=== PATIENT | male | born 1965 | race Asian ===

== ENCOUNTER 2019-01-27 14:32 | Emergency (ER) | payer BC ==
--- NOTE | 2019-01-27 14:49 | Emergency Department Report ---
Blank Doc - Documentation Documentation: This is a 54-year-old male that presents with left sided chest pain with radia tion to left side. Denies any SOB. This initial assessment/diagnostic orders/clinical plan/treatment(s) is/are subject to change based on patient's health status, clinical progression and re-assessment by fellow clinical providers in the ED. Further treatment and workup at subsequent clinical providers discretion. Patient/guardians urged not to elope from the ED as their condition may be serious if not clinically assessed and managed. Initial orders include: 1- Patient sent to MAIN for further evaluation and treatment 2- labs 3- EKG 4- CXR
--- NOTE | 2019-01-27 15:17 | XRay Report ---
CHEST 2 VIEWS INDICATION: Chest pain for one day. COMPARISON: None FINDINGS: Support devices: None. Heart: Within normal limits. Lungs/pleura: No acute air space or interstitial disease. No pneumothorax. Additional findings: None. IMPRESSION: No acute findings. Signer Name: Lito Mercado Jr, MD Signed: 01/27/2019 3:13 PM Workstation Name: [id number]
[2019-01-27 15:26] LABS: Basophils % (Auto) 0.6 % (0.0-1.8); Eosinophils % (Auto) 0.7 % (0.0-4.3); Hematocrit 39.7 % (35.5-45.6); Hemoglobin 13.6 gm/dl (11.8-15.2); Lymphocytes # (Auto) 1.1 K/mm3 (1.2-5.4); Lymphocytes % (Auto) 30.6 % (13.4-35.0); Mean Corpuscular HGB Conc 34 % (32-34); Mean Corpuscular Volume 94 fl (84-94); Monocytes # (Auto) 0.2 K/mm3 (0.0-0.8); Monocytes % (Auto) 6.4 % (0.0-7.3); Platelet Count 233 K/mm3 (140-440); Red Blood Count 4.21 M/mm3 (3.65-5.03); Red Cell Distribution Width 13.3 % (13.2-15.2)
[2019-01-27 15:32] LABS: INR 1.06 (0.87-1.13)
[2019-01-27 15:34] LABS: BUN/Creatinine Ratio 18; Blood Urea Nitrogen 16 mg/dL (9-20); Calcium 9.1 mg/dL (8.4-10.2); Hemolysis Index 11
--- NOTE | 2019-01-27 16:24 | Emergency Department Report ---
ED Chest Pain HPI - General Chief Complaint: Chest Pain Stated Complaint: CHEST/L ARM PAIN Time Seen by Provider: 01/27/19 16:07 Source: patient Mode of arrival: Ambulatory Limitations: No Limitations - History of Present Illness Initial Comments: Patient is a 54-year-old male that presents emergency with complaints of left- sided chest pain radiating to his left arm 3 days. Patient states the chest pain is constant. Patient states the chest pain is a 3 out of 10 and is a pressure or tightness. Patient states he had a stress test 5 years ago and was normal. Patient states she has a past medical history of hyperlipidemia. 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 Patient states she sees Rich Downing. Patient does not have a history of hypertension or diabetes. Patient states his hyperlipidemias control Crestor. Patient denies shortness of breath. Patient denies fever chills. Patient denies nausea vomiting. Patient denies diaphoresis. MD Complaint: chest pain -: Sudden Onset: during rest Pain Radiation: none Severity: mild Severity scale (0 -10): 3 Quality: tightness, pressure Consistency: constant Improves With: nothing Worsens With: nothing re: denies: nausea, vomting, diaphoresis, dyspnea, sense of impending doom Other Symptoms: denies: cough, fever, syncope, rash, acid taste in mouth, leg swelling, palpitations, burping Treatments Prior to Arrival: none Aspirin use within the Past 7 Days: (0) No - Related Data On Oral Contraceptives: No Previous Rx's Medication Instructions Recorded Last Taken Type Aspirin [Adult Aspirin] 81 mg PO DAILY #15 tablet. 01/27/19 Unknown Rx Allergies Allergy/AdvReac Type Severity Reaction Status Date / Time No Known Allergies Allergy Verified 01/27/19 15:29 Heart Score - HEART Score History: Slightly suspicious EKG: Normal Age: 45-65 Risk factors: No known risk factors Troponin: < normal limit HEART Score: 1 ED Review of Systems ROS: Stated complaint: CHEST/L ARM PAIN Other details as noted in HPI Constitutional: denies: chills, fever Eyes: denies: eye pain, eye discharge, vision change ENT: denies: ear pain, throat pain Respiratory: denies: cough, shortness of breath, wheezing Cardiovascular: chest pain. denies: palpitations Endocrine: no symptoms reported Gastrointestinal: denies: abdominal pain, nausea, diarrhea Genitourinary: denies: urgency, dysuria Musculoskeletal: denies: back pain, joint swelling, arthralgia Skin: denies: rash, lesions Neurological: denies: headache, weakness, paresthesias Psychiatric: denies: anxiety, depression Hematological/Lymphatic: denies: easy bleeding, easy bruising ED Past Medical Hx - Past Medical History Previous Medical History?: Yes Additional medical history: hyperlipidemia, - Surgical History Past Surgical History?: No - Family History Family history: no significant - Social History Smoking Status: Never Smoker Substance Use Type: None - Medications Home Medications: Home Medications Medication Instructions Recorded Confirmed Last Taken Type Aspirin [Adult Aspirin] 81 mg PO DAILY #15 tablet. 01/27/19 Unknown Rx ED Physical Exam - General Limitations: No Limitations General appearance: alert, in no apparent distress - Head Head exam: Present: atraumatic, normocephalic - Eye Eye exam: Present: normal appearance, PERRL Pupils: Present: normal accommodation - ENT ENT exam: Present: mucous membranes moist - Neck Neck exam: Present: normal inspection - Respiratory Respiratory exam: Present: normal lung sounds bilaterally, chest wall tenderness. Absent: respiratory distress - Cardiovascular Cardiovascular Exam: Present: regular rate, normal rhythm. Absent: systolic murmur, diastolic murmur, rubs, gallop - GI/Abdominal GI/Abdominal exam: Present: soft, normal bowel sounds - Rectal Rectal exam: Present: deferred - Extremities Exam Extremities exam: Present: normal inspection - Back Exam Back exam: Present: normal inspection - Neurological Exam Neurological exam: Present: alert, oriented X3 - Psychiatric Psychiatric exam: Present: normal affect, normal mood - Skin Skin exam: Present: warm, dry, intact, normal color. Absent: rash ED Course Vital Signs 01/27/19 01/27/19 14:48 16:59 Temperature 98 F Pulse Rate 75 72 Respiratory 16 Rate Blood Pressure 132/77 Blood Pressure 126/76 [Left] O2 Sat by Pulse 99 96 Oximetry - Reevaluation(s) Reevaluation #1: I discussed all results with patient. Patient is stable for discharge. Patient will be discharged home. Patient agrees with plan of care. Patient given discharge instructions. Patient voiced understanding discharge instructions. 01/27/19 16:46 COSME score - Cosme Score Age > 65: (0) No Aspirin use within the Past 7 Days: (0) No 3 or more CAD Risk Factors: (0) No 2 or more Angina events in past 24 hrs: (1) Yes Known CAD with more than 50% Stenosis: (0) No Elevated Cardiac Markers: (0) No ST Deviation Greater than 0.5mm: (0) No COSME Score: 1 ED Medical Decision Making - Lab Data Result diagrams: 01/27/19 15:10 01/27/19 15:10 - EKG Data -: EKG Interpreted by Me EKG shows normal: sinus rhythm, axis, intervals, QRS complexes, ST-T waves Rate: normal - Radiology Data Radiology results: report reviewed, image reviewed interpreted by me: ravin cxr - Medical Decision Making Patient is a 54-year-old male that presents emergency room with complaints of chest pain for 3 days. Patient's chest pain is low risk. Patient's R score is less than 2. Patient's information was faxed [facility] to [facility] for immediate follow-up. Patient agrees with plan of care. Patient's labs unremarkable. Base EKG normal limits. Patient's chest x-ray normal limits. Patient's chest pain is low risk and patient is stable for discharge and can have a cardiac workup as an outpatient. - Differential Diagnosis chest pain. low risk chest pain. chest wall pain Critical care attestation.: If time is entered above; I have spent that time in minutes in the direct care of this critically ill patient, excluding procedure time. ED Disposition Clinical Impression: Chest pain Qualifiers: Chest pain type: unspecified Qualified Code(s): R07.9 - Chest pain, unspecified Disposition: - TO HOME OR SELFCARE Is pt being admited?: No Does the pt Need Aspirin: No Condition: Stable Instructions: Chest Pain (ED) Additional Instructions: Patient to follow up with primary care in 2-3 days. Patient to follow up with cardiology within 2 days, patient's info faxed to cardio office for further evaluation. Patient to return to ER if condition worsens. Patient increase water. Patient to take Tylenol when necessary for pain. Patient to avoid stenuous activity and exercise until cleared by cardiology. patient to continue all meds. patient to to take aspirin 81 mg per day. . Prescriptions: Aspirin [Adult Aspirin] 81 mg PO DAILY #15 tablet.dr Referrals: VAL TAVARES MD [Staff Physician] - 2-3 Days Time of Disposition: 16:39
[2019-01-27 17:00] VITALS: BP 126/76
== END 2019-01-27 18:45 | disposition home or self-care (01) ==
LOC: ED 14:32
DX: R07.89 Other chest pain (principal); E78.5 Hyperlipidemia, unspecified; Z79.899 Other long term (current) drug therapy
CPT/HCPCS: 36415; 71046; 80048; 84484; 85025; 85610; 85730; 93005; 93010